=== PATIENT | female | born 1975 | race Caucasian/White ===

== ENCOUNTER 2020-09-25 09:16 | Outpatient (CLI) | payer MEDICAID ==
--- NOTE | 2020-09-25 10:00 | SLEEP CARE CONSULTATION ---
Information from patient questionnaire entered by Erendira Ortega. I have reviewed and concur with the information entered by Erendira Ortega. This document represents the service I personally performed and the decisions made by me, Angelica Jennings ARNP. History of Present Illness Service Date and Time: 09/25/2020 09 Reason for Visit: New patient Chief Complaint: reports: Unrefreshed sleep, Snoring, Excessive daytime sleepiness, Fatigue Date of Onset: 6 months plus Usual bedtime: 12 am Time it takes to fall asleep: 5-10 minutes Snores at night: Yes Observed to quit breathing while asleep: No (unsure) Sleeps alone due to snoring: No Number of times waking at night: 4-5 Reasons for waking at night: reports: Gasping for air, Pain, Bathroom, Other (excess saliva, pets, tempature changes, ear neck shoulder and jaw or other joint pain, restless legs) Toss, Turn, or Twitch while sleeping: Yes Recalls having dreams: Yes Usually gets out of bed at: 7:30 am Feels refreshed in the morning: Yes (sometimes) Morning headache: Yes (sometimes, resolves soon after waking; 2-3 times a week) Sleepy or fatigued during the day: Yes Ever fallen asleep while driving: No Takes day naps: Yes (occasionally; 2 times a month) Dreams during day naps: Yes Prior sleep studies: Yes Year and Where: 2015 - [facility] Additional HPI information: I had the pleasure of seeing PAUL MERRILL today regarding the possibility of her having a sleep disorder. Her current complaints are excessive daytime sleepiness, fatigue, snoring, and unrefreshed sleep. She has had a sleep study about 5 years or so ago and it was recommended that she start CPAP therapy but she could not because she has severe claustrophobia and was unable to even try to tolerate the CPAP. She is working with her PCP to determine cause of her daily fatigue and sleepiness. - Parasomnia Symptoms Ever been unable to move upon waking from sleep: No Walks in sleep: No Talks in sleep: Yes Ever acted out dreams in sleep: Yes Ever felt weak in the knees when startled or emotional: Yes Bothered by creepy, crawly, restless sensations in legs: Yes (when relaxed, during day and when laying down; 2-3 times a month) Problems with memory or concentration: Yes (occasionally; both) Subjective Initial [place] Sleepiness Scale score: 11 (in 2020) Past Medical History Past Medical History: reports: Hypertension, Claustrophobia, Arthritis, Insulin resistance, Asthma, Other (adrenal fatigue, hormone imbalance, polcystic ovary syndrome) Social History 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 Patient is and lives in [place]. Have you smoked in the past 12 months: No Alcohol use: Yes Alcohol amount and frequency: 2 beers or 1 double liquer or 1 glass of wine 0-2 times a week Caffeine use: Yes Caffeine amount and frequency: 1-2 drinks per day, 1 morning sometimes afternoon Family History Family history of sleep disordered breathing: No (adopted, no records of parents) Allergies and Home Medications Drug allergies reviewed: Yes (NKDA) Home medication list reviewed: Yes Allergy and home medication list: Montelukast Spirinolactone Lisinopril Liothyronine Metformin Pregneloninone DHEA Fish oil Ashwaganda Vitamin B complex Symbicort Review of Systems Weight gain over past 5 years: 25 Weight loss over past 5 years: 25 Cardiovascular: reports: high blood pressure, leg or foot swelling Respiratory: reports: chronic cough, other (asthma) Gastrointestinal: denies: heartburn Neurological: reports: headaches, head trauma (in high school, not sure if concussed) Psychiatric: reports: anxiety (medical/dental), claustrophobia Ear/Nose/Throat: reports: nasal congestion, sinus problems, dry mouth/throat, hoarseness (new, within 4 weeks), wisdom teeth removed. denies: injury to nose, tonsillectomy Endocrine: reports: other (adrenal fatigue) Musculoskeletal: reports: joint pain, neck pain, back pain Immunologic: reports: sneezing, allergies to food or environment (grasses and pollen, wheat) Physical Exam Blood Pressure: 140/79 Cuff size: large Heart Rate: 84 O2 Saturation: 97 Height: 5 ft 5 in Weight: 367 lb Body Mass Index: 61.0 BMI Classification: Morbidly Obese Neck circumference: 18.75 Mouth and throat: narrow oropharynx Soft palate: long Hard palate: normal Uvula visualization: 25% Mallampati Class III Tongue: enlarged in size with teeth reynoso on lateral edges Tonsils: 1+ Neck: normal w/o lymphadenopathy or thyromegaly Heart: regular rate and rhythm Lungs: clear bilaterally Impression and Plan 1. Suspected Obstructive Sleep Apnea-Hypopnea Syndrome, as possibly previously diagnosed and as suggested by a history of loud and irregular snoring, morning headache, unrefreshed sleep, cognitive impairment, and excessive daytime sleepiness. Narrow oropharynx and obesity are common predisposing factors for obstructive sleep apnea-hypopnea syndrome. I recommend proceeding to polysomnography to confirm the diagnosis and to assess severity. If the patient has significant sleep disordered breathing, a manual CPAP titration study will also be performed to find the optimal treatment pressure. I informed the patient of what the sleep studies involve and after some discussion, obtained agreement to proceed. The pathophysiology of obstructive sleep apnea-hypopnea syndrome was discussed with the patient and health risks of cardiovascular and cerebrovascular disease if not treated. Risks of drowsy driving discussed in detail and patient advised to avoid long distance driving and to machine puller at the first sign of drowsiness. Patient agreed to plan. * Schedule polysomnography +- manual CPAP titration study and return in 1-2 we eks after the study to discuss result and initiate therapy. * Avoid long distance driving or driving when feeling sleepy. * Avoid alcohol, sedative and muscle relaxant around bedtime. * Attempt to lose weight. * Review instructions provided by trained office staff on how to prepare for the sleep study. * Return for follow-up after sleep study completed. Counseling Topics: Weight loss health impact Visit Type: In Office Time Spent with Patient (minutes): 32 Provider Statement: I spent 100% of the Face to Face Visit with the patient with greater than 50% spent counseling the patient and coordination of care.
[2020-09-25 10:05] VITALS: BP 140/79
== END 2020-09-25 09:17 | disposition home or self-care (01) ==
LOC: SC 09:16
PROVIDERS: ATTEND Nurse Practitioner Family
DX: G47.10 Hypersomnia, unspecified (principal); R41.9 Unspecified symptoms and signs involving cognitive functions and awareness; G47.8 Other sleep disorders; R51.9 Headache, unspecified; R06.83 Snoring; E66.01 Morbid (severe) obesity due to excess calories; Z68.44 Body mass index [BMI] 60.0-69.9, adult
CPT/HCPCS: 99203; 99212

== ENCOUNTER 2021-04-21 23:24 | Emergency (ER) | payer MEDICAID ==
[2021-04-21 23:40] VITALS: BP 122/97
[2021-04-22 00:01] LABS: BILIRUBIN,URINE NEGATIVE (NEGATIVE); GLUCOSE, URINE (UA) NEGATIVE (NEGATIVE); KETONES,URINE (UA) NEGATIVE (NEGATIVE); LEUKOCYTE ESTERASE, URINE NEGATIVE (NEGATIVE); NITRITE,URINE NEGATIVE (NEGATIVE); OCCULT BLOOD,URINE NEGATIVE (NEGATIVE); PROTEIN,URINE NEGATIVE (NEGATIVE); UROBILINOGEN,URINE 0.2 (NORMAL) E.U./dL (NORMAL)
[2021-04-22 00:02] LABS: CLARITY,URINE CLEAR (CLEAR); HCG UR QUAL NEGATIVE
[2021-04-22 00:07] LABS: BACTERIA,URINE None Seen /HPF (None Seen); RBC,URINE None Seen /HPF (0-5); SQUAMOUS EPITHELIAL CELL,UR RARE Squamous (<= Few); WBC,URINE 0-3 /HPF (0-5)
--- NOTE | 2021-04-22 00:13 | ED Physician Documentation ---
History of Present Illness - Stated complaint Stated Complaint: BACK PX - Chief complaint Chief Complaint: Abd Pain - History obtained from History obtained from: Patient - Additonal information Additional information: 45yF with pmh prediabetes, morbid obesity, hypothyroid, htn, p/w L flank and lower back pain sudden onset at 9pm, constant, improving with 600mg ibuprofen, a/w nausea, aching quality, nonradiating. no history of prior injury. 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 denies urinary sx, abd pain, vomiting, fever. Review of Systems GI: reports: Nausea. denies: Abdominal Pain, Vomiting : denies: Dysuria Musculoskeletal: reports: Back pain PD PAST MEDICAL HISTORY - Past Medical History Cardiovascular: Hypertension Respiratory: Asthma - Past Surgical History Past Surgical History: Yes General: Cholecystectomy - Present Medications Home Medications: Ambulatory Orders Medication Instructions Recorded Confirmed Spironolactone 100 mg PO DAILY 09/18/14 04/21/21 lisinopriL [Lisinopril] 10 mg PO DAILY 09/18/14 04/21/21 Hydrocodone/Acetaminophen [[place] 1 each PO Q6H PRN #20 tablet 09/19/14 5-325 Tablet] Liothyronine [Cytomel] 1 tab PO DAILY 04/21/21 04/21/21 Montelukast [Singulair] 10 mg PO DAILY 04/21/21 04/21/21 metFORMIN [Glucophage] 1,000 mg PO BID 04/21/21 04/21/21 Ketorolac [Toradol] 10 mg PO Q6H PRN #30 tablet 04/22/21 - Allergies Allergies/Adverse Reactions: Allergies Allergy/AdvReac Type Severity Reaction Status Date / Time No Known Drug Allergies Allergy Verified 04/21/21 23:40 - Social History Does the pt smoke?: No Smoking Status: Never smoker Does the pt drink ETOH?: Yes Does the pt have substance abuse?: No - Immunizations Immunizations are current?: Yes - POLST Patient has POLST: No PD ED PE NORMAL - Vitals Vital signs reviewed: Yes - General General: Alert and oriented X 3, No acute distress, Well developed/nourished - HEENT HEENT: Atraumatic, PERRL, EOMI - Neck Neck: No bony TTP - Back Back: No CVA TTP, No spinal TTP, Other (L lower back discomfor tto palpation) - Derm Derm: Normal color, Warm and dry - Extremities Extremities: No deformity - Neuro Neuro: No motor deficit, No sensory deficit Results - Vitals Vitals: Vital Signs - 24 hr 04/21/21 23:27 Temperature 37.3 C Heart Rate 97 Respiratory 18 Rate Blood Pressure 122/97 H O2 Saturation 97 Oxygen O2 Source Room air - Labs Labs: Laboratory Tests 04/21/21 04/21/21 23:55 23:55 Urine Color YELLOW Urine Clarity CLEAR Urine pH 6.0 Ur Specific [place] 1.020 Urine Protein NEGATIVE Urine Glucose (UA) NEGATIVE Urine Ketones NEGATIVE Urine Occult Blood NEGATIVE Urine Nitrite NEGATIVE Urine Bilirubin NEGATIVE Urine Urobilinogen 0.2 (NORMAL) Ur Leukocyte Esterase NEGATIVE Urine RBC None Seen Urine WBC 0-3 Ur Squamous Epith Cells RARE Squamous Urine Bacteria None Seen Urine Culture Comments NOT INDICATED Urine HCG, Qual NEGATIVE PD MEDICAL DECISION MAKING - ED course ED course: 45yF p/w L lower back strain. u/a normal. no history kidney stones. symptom care provided and rx given. return precautions given. plan to f/u with pmd. Departure - Departure Disposition: Home, Self Care Clinical Impression: Lower back pain Condition: Stable Instructions: ED Spasm Back No Trauma Prescriptions: Ketorolac [Toradol] 10 mg PO Q6H PRN #30 tablet PRN Reason: Pain Comments: You were seen in the emergency department for evaluation of back pain. Your urine test was normal. You have no signs of infection and you are not . Please take toradol as needed for pain, and avoid over NSAIDs within 6 hours of taking toradol. Follow up with your primary doctor and return to the ED if you have other concerns. Toradol was sent electronically to the [facility].
[2021-04-22] MEDS: oxyCODONE 5 MG TABLET PO STA (00:19)
[2021-04-22] MEDS: ACETAMINOPHEN 325 MG TABLET PO STA (00:19)
[2021-04-22] MEDS: LIDOCAINE PATCH 5% TOP STA (00:19)
== END 2021-04-22 00:20 | disposition home or self-care (01) ==
LOC: ED 23:24
DX: M54.50 Low back pain, unspecified (principal); I10 Essential (primary) hypertension; E03.9 Hypothyroidism, unspecified; R73.03 Prediabetes; E66.01 Morbid (severe) obesity due to excess calories; Z68.43 Body mass index [BMI] 50.0-59.9, adult
CPT/HCPCS: 81001; 81025; 99283; A9270; 87086

== ENCOUNTER 2021-05-19 10:50 | Outpatient (CLI) | payer MEDICAID ==
--- NOTE | 2021-05-19 16:39 | Ultrasound Report ---
PROCEDURE: Pelvic w/Transvaginal INDICATIONS: POST MENOPAUSAL VAG BLEEDING TECHNIQUE: Real-time scanning was performed of the pelvic organs, with image documentation. Additional endovagi nal scanning was necessary due to incomplete visualization of the adnexal and endometrial structures by transabdominal scanning. COMPARISON: None. FINDINGS: No pathologic free abdominal or pelvic fluid. Uterus: Uterus is normal in size at 9.1 x 3.1 x 3.1 cm. The endometrium measures 5.4 mm in combined thickness. Uterus echotexture is homogeneous. Uterus is anteverted. Small amount of fluid within the cervical canal. Ovaries: Right ovary measures 2.2 x 1.2 x 1.4 cm with total volume of 2.0 cc left ovary measures 2.3 x 1.2 x 1.3 cm with total volume of 1.8 cc. The ovaries are sonographically normal. IMPRESSION: 1. No sonographic evidence of uterine mass or endometrial thickening. 2. Ovaries are sonographically normal for postmenopausal female. Reviewed by: Vita Oconnor MD, PhD on 05/19/2021 4:38 PM PST Approved by: Vita Oconnor MD, PhD on 05/19/2021 4:38 PM PST Station ID: [id number]
== END 2021-05-19 10:51 | disposition home or self-care (01) ==
LOC: DI 10:50
PROVIDERS: ATTEND Family Medicine
DX: N95.0 Postmenopausal bleeding (principal)

== ENCOUNTER 2021-06-03 18:43 | Outpatient (CLI) | payer MEDICAID | END 2021-06-03 18:44 | disposition critical access hospital (66) | LOC: EMS 18:43 | DX: M62.830 Muscle spasm of back (principal); M54.59 Other low back pain | CPT/HCPCS: A0425; A0429; A0999 ==

== ENCOUNTER 2021-06-03 19:31 | Emergency (ER) | payer MEDICAID ==
[2021-06-03] MEDS ORDERED: HYDROmorphone 1 MG/ML CARPUJECT IM STA ×2 (19:52→20:45)
[2021-06-03] MEDS ORDERED: KETOROLAC 60 MG/2 ML VIAL IM STA (19:52)
--- NOTE | 2021-06-03 19:53 | ED Physician Documentation ---
PD HPI BACK PAIN - Stated complaint Stated Complaint: LOWER BACK SPASM - Chief complaint Chief Complaint: Back Pain - History obtained from History obtained from: Patient - Additional information Additional information: 45-year-old woman presents by ambulance for back spasm. Left-sided back spasm starting earlier today without specific injury. It is much worse with bending and twisting and trying to sit up. There is no weakness, numbness, tingling, saddle anesthesia, or fevers. She had this once before back in March and it went away after a few days. Review of Systems Constitutional: reports: Reviewed and negative Ears: reports: Reviewed and negative Throat: reports: Reviewed and negative Cardiac: reports: Reviewed and negative PD PAST MEDICAL HISTORY - Past Medical History Cardiovascular: Hypertension Respiratory: Asthma - Past Surgical History Past Surgical History: Yes General: Cholecystectomy - Present Medications Home Medications: Ambulatory Orders Medication Instructions Recorded Confirmed Spironolactone 100 mg PO DAILY 09/18/14 04/21/21 lisinopriL [Lisinopril] 10 mg PO DAILY 09/18/14 04/21/21 Hydrocodone/Acetaminophen [[place] 1 each PO Q6H PRN #20 tablet 09/19/14 5-325 Tablet] Liothyronine [Cytomel] 1 tab PO DAILY 04/21/21 04/21/21 Montelukast [Singulair] 10 mg PO DAILY 04/21/21 04/21/21 metFORMIN [Glucophage] 1,000 mg PO BID 04/21/21 04/21/21 Ketorolac [Toradol] 10 mg PO Q6H PRN #30 tablet 04/22/21 Oxycodone HCl/Acetaminophen 1 - 2 each PO Q6H PRN #14 tablet 06/03/21 [Percocet 5-325 mg Tablet] - Allergies Allergies/Adverse Reactions: Allergies Allergy/AdvReac Type Severity Reaction Status Date / Time No Known Drug Allergies Allergy Verified 06/03/21 19:33 - Social History Does the pt smoke?: No Smoking Status: Never smoker Does the pt drink ETOH?: Yes Does the pt have substance abuse?: No - Immunizations Immunizations are current?: Yes - POLST Patient has POLST: No PD ED PE NORMAL - Vitals Vital signs reviewed: Yes - General General: Alert and oriented X 3, Other (She appears uncomfortable and cannot move due to pain.) - Abdomen Abdomen: Normal bowel sounds, Soft, Non tender - Back Back: No spinal TTP, Other (No midline spinal tenderness but she does have palpable spasm and tenderness of the left paralumbar muscles) - Derm Derm: Normal color, Warm and dry - Extremities Extremities: No edema, No calf tenderness / cord, Other (The patient has equal and normal Achilles and patellar reflexes bilaterally. Normal sensation in all areas of the legs. Patient denies saddle anesthesia. Normal strength in flexion-extension at the ankles, knees, and flexion of the hips.) - Neuro Neuro: Alert and oriented X 3, Normal speech Results - Vitals Vitals: Vital Signs - 24 hr 06/03/21 06/03/21 06/03/21 19:31 19:34 20:06 Temperature 37.3 C Heart Rate 76 75 80 Respiratory 20 20 22 Rate Blood Pressure 155/71 H O2 Saturation 98 06/03/21 21:02 Temperature Heart Rate 72 Respiratory 14 Rate Blood Pressure O2 Saturation 97 Oxygen O2 Source Room air PD MEDICAL DECISION MAKING - ED course ED course: She presents with fairly typical back spasm starting today. After divided doses of Toradol, hydromorphone and Ativan IM she was feeling much better. Became functional again and regained the ability to move around and sit up etc. without significant pain. This patient has seemingly uncomplicated musculoskeletal back pain. The patient has no "red flags." Specifically denies IV drug use, fevers, incontinence, saddle anesthesia. Spinal epidural abscess was considered, given that the patient has no fever, is not diabetic, has no spinal tenderness, does not use IV drugs, and has no bilateral neurologic symptoms, the diagnosis of spinal epidural abscess is considered exceedingly unlikely. Departure - Departure Disposition: 01 Home, Self Care Clinical Impression: Back spasm Condition: Good Record reviewed to determine appropriate education?: Yes Instructions: ED Low Back Pain Injury Prescriptions: Oxycodone HCl/Acetaminophen [Percocet 5-325 mg Tablet] 1 - 2 each PO Q6H PRN #14 tablet PRN Reason: pain Comments: I sent prescriptions electronically to [facility] in [place]. Return for new or worsening symptoms. Follow-up with your doctor, discuss physical therapy as it sounds like she is already planning to do. In addition to narcotic pain medication I encourage the use of [id number] NSAIDs such as ibuprofen or naproxen. You should not take those for more than about a week though. I am prescribing a short course of narcotic pain medication for you. These are potentially dangerous and addictive medications that should be used carefully. These medications may constipate you. Take an zceb-nyf-iicquuc stool softener (docusate) twice daily with plenty of water while taking these medications. If you go 24 hours without a bowel movement, take [id number] miralax, per package instructions. Do not drink or drive while taking these medications. If you received narcotic or sedating medications while in the emergency department, do not drive for 24 hours. Store this medication in a safe, secure place and out of reach of children. It is a violation of federal law to give or sell this medication to another person or to use in a manner other than prescribed. The ED will not refill narcotic prescriptions, including prescriptions lost or stolen. To dispose of unwanted medications: 1. [facility] at [address] in [place] has a medication drop box. They accept prescription medications (in pill form) Wednesday through Wednesday 9:00 a.m. to 5:00 p.m. 2. The [facility] [employer] accepts prescription medications (in pill form only) for disposal year round. Call for more information. 3. Contact the [facility] for the next [facility] sponsored prescription drug collection event. , [phone], or [phone]; Note that many narcotic pain relievers also contain Tylenol/acetaminophen. Please ensure that your total dose of acetaminophen from all sources does not exceed 3 g (3000 mg) per day.
[2021-06-03] MEDS ORDERED: LORazepam 2 MG/ML VIAL IM STA (20:45)
[2021-06-03 21:52] VITALS: BP 109/42
== END 2021-06-03 21:44 | disposition home or self-care (01) ==
LOC: ED 19:31
DX: M62.830 Muscle spasm of back (principal)
CPT/HCPCS: 96372; 99283; J1170; J2060

== ENCOUNTER 2021-06-30 12:41 | Outpatient (CLI) | payer MEDICAID ==
--- NOTE | 2021-06-30 14:50 | XRAY Report ---
PROCEDURE: Thoracic Spine 2 View INDICATIONS: LOW BACK PAIN TECHNIQUE: 3 views of the thoracic spine were acquired. COMPARISON: Lumbar spine radiographs also performed today. FINDINGS: Bones: No fractures or dislocations. No suspicious bony lesions. 12 pairs of ribs are noted, and a ppear intact where visualized. Small vertebral body osteophytes. Soft tissues: No paravertebral stripe thickening. Cholecystectomy clips. IMPRESSION: Mild to moderate degenerative change in the thoracic spine. Reviewed by: Oren Patel MD on 06/30/2021 2:49 PM PDT Approved by: Oren Patel MD on 06/30/2021 2:49 PM PDT Station ID: [id number]
--- NOTE | 2021-06-30 14:51 | XRAY Report ---
PROCEDURE: Lumbar Spine 2 View INDICATIONS: LOW BACK PAIN TECHNIQUE: 2 views of the lumbar spine were acquired. COMPARISON: Same day thoracic spine radiographs. FINDINGS: Bones: 5 [id number] vertebrae are present. There is normal bony alignment. Moderate size verte bral body osteophytes. No vertebral body compression fractures. No suspicious bony lesions. Soft tissues: Overlying bowel gas pattern is normal. No suspicious soft tissue calcifications. IMPRESSION: Moderate degenerative change in the lumbar spine. Reviewed by: Oren Patel MD on 06/30/2021 2:50 PM PDT Approved by: Oren Patel MD on 06/30/2021 2:50 PM PDT Station ID: [id number]
== END 2021-06-30 12:42 | disposition home or self-care (01) ==
LOC: DI.S 12:41
PROVIDERS: ATTEND Family Medicine
DX: M47.814 Spondylosis without myelopathy or radiculopathy, thoracic region (principal); M47.816 Spondylosis without myelopathy or radiculopathy, lumbar region

== ENCOUNTER 2023-05-11 09:48 | Outpatient (CLI) | payer BC ==
[2023-05-11 14:34] LABS: BASOPHILS % (AUTO) 0.4 %; EOSINOPHILS # (AUTO) 0.2 10^3/uL (0.0-0.7); EOSINOPHILS % (AUTO) 2.1 %; HCT - HEMATOCRIT 39.7 % (37.0-47.0); HGB - HEMOGLOBIN 12.5 g/dL (12.0-16.0); LYMPHOCYTES # (AUTO) 1.9 10^3/uL (1.5-3.5); LYMPHOCYTES % (AUTO) 25.7 %; MEAN CORPUSCULAR HEMOGLOBIN 28.9 pg (27.0-31.0); MEAN CORPUSCULAR HGB CONC 31.5 g/dL (32.0-36.0); MEAN CORPUSCULAR VOLUME 91.9 fL (81.0-99.0); MEAN PLATELET VOLUME 11.7 fL (7.9-10.8); MONOCYTES # (AUTO) 0.8 10^3/uL (0.0-1.0); MONOCYTES % (AUTO) 10.5 %; NEUTROPHILS # (AUTO) 4.6 10^3/uL (1.5-6.6); NEUTROPHILS % (AUTO) 61.2 %; PLT - PLATELET COUNT 276 10^3/uL (130-450); RED BLOOD COUNT 4.32 10^6/uL (4.20-5.40); RED CELL DISTRIBUTION WIDTH 14.6 % (12.0-15.0); WHITE BLOOD COUNT 7.6 x10^3/uL (4.8-10.8)
[2023-05-11 14:57] LABS: % IRON SATURATION 20 % (20-50); ALBUMIN 4.1 g/dL (3.2-5.5); ALBUMIN/GLOBULIN RATIO 1.2 (1.0-2.2); ALKALINE PHOSPHATASE 59 IU/L (42-121); ALT ALANINE AMINOTRANSFERASE 26 IU/L (10-60); AST ASPARTATE AMINOTRANSFERASE 24 IU/L (10-42); BILIRUBIN,TOTAL 0.4 mg/dL (0.2-1.0); BUN - BLOOD UREA NITROGEN 11 mg/dL (6-20); CALCIUM 9.6 mg/dL (8.5-10.3); CARBON DIOXIDE - CO2 26 mmol/L (21-32); CHLORIDE 101 mmol/L (101-111); CHOL/HDL RATIO 2.6 (<4.4); CHOLESTEROL 145 mg/dL; CREATININE 0.7 mg/dL (0.6-1.3); CRP HIGH SENSITIVITY 11.85 mg/L; GFR - MDRD 89 (>89); GLUCOSE 114 mg/dL (74-104); HDL CHOLESTEROL 56 mg/dL; IRON 67 ug/dL (50-212); LDL CHOLESTEROL,CALCULATED 74 mg/dL; LDL/HDL RATIO 1.3 (<4.4); POTASSIUM 4.6 mmol/L (3.5-4.5); SODIUM 133 mmol/L (135-145); THYROID STIMULATING HORMONE 1.94 uIU/mL (0.34-5.60); TOTAL IRON BINDING CAPACITY 329 ug/dL (250-450); TOTAL PROTEIN 7.4 g/dL (6.4-8.9); TRANSFERRIN 235 mg/dL (203-362); TRIGLYCERIDES 74 mg/dL (48-352); VLDL CHOLESTEROL 15 mg/dL
[2023-05-11 15:05] LABS: FERRITIN 108.5 ng/mL (11.0-306.8)
[2023-05-11 21:35] LABS: ESTIMATED AVERAGE GLUCOSE 123 mg/dL (70-100); HEMOGLOBIN A1c% 5.9 % (4.27-6.07)
[2023-05-12 04:09] LABS: VITAMIN D 25-HYDROXY 56.8 ng/mL (30.0-100.0)
[2023-05-17 20:07] LABS: REVERSE T3 SERUM 16.5 ng/dL (.)
== END 2023-05-11 09:49 | disposition home or self-care (01) ==
LOC: LAB.S 09:48
PROVIDERS: ATTEND Family Medicine
DX: I10 Essential (primary) hypertension (principal); E78.5 Hyperlipidemia, unspecified; R53.83 Other fatigue; R73.09 Other abnormal glucose; E55.9 Vitamin D deficiency, unspecified; E72.11 Homocystinuria; D64.9 Anemia, unspecified
CPT/HCPCS: 36415; 80053; 80061; 82306; 82626; 82728; 83036; 83090; 83540; 83721; 84439; 84443; 84466; 84480; 84481; 84482; 85025; 86141